=== PATIENT | female | born 1990 | race Caucasian/White ===

== ENCOUNTER 2016-11-30 23:31 | Emergency (ER) | payer OTHER ==
[~2016-11-30] VITALS: Ht 154.9 cm; Wt 72.7 kg
[~2016-11-30 23:31] MED LIST: PREN-99 PO
--- NOTE | 2016-11-30 23:37 | ED.REPORT ---
HPI-Extremity Problem Lower Date of Service Nov 30, 2016 ED Provider: Dr. Boo The pt is a 26 y/o female with one kidney and a hx of asthma who presents to the ED complaining of left ankle pain and swelling, onset a few hours ago after the pt slipped and fell while hiking. She felt a crack. She took a Tylenol 2 hours ago which provided mild relief. She denies lack of sensation and motor function in her toes. Nursing Notes Stated Complaint: LEFT ANKLE PAIN Nursing Notes Reviewed: Yes Allergies: Coded Allergies: amoxicillin (Unverified Allergy, Intermediate, rash, 07/27/13) ibuprofen (Verified Adverse Reaction, Unknown, Pt has one kidney, 01/08/15 ) Miscellaneous Medications Pnv95/Ferrous Fumarate/FA ( Multivitamins Tablet) 1 Each Tablet 1 EACH PO General Time Seen by MD: 23:36 Chief Complaint Ankle injury left Hx Obtained From: Patient Arrived By: Wheelchair Onset Occurred: 1 - 4 hours ago Symptom Duration: Since onset Caused by: Fall on ground Location: : Ankle left Quality: Painful Severity: Current: MildModerate Severity: Maximum: Moderate Recent Healthcare: No recent doctor visit Past Medical History Past Medical History Mild hypothyroid One kidney Reports: Asthma Smoking History Never Smoker Social History Other Social History: Good social support, Lives with children, Local resident Ambulatory Status Independent Review of Systems Denies: lack of sensation and motor function in left toes. Musculoskeletal: Reports: Joint pain (left ankle pain), Joint swelling (left ankle swelling) Complete sys rev & neg: except as marked. Physical Exam Initial Vital Signs Vital Signs (First) Date Time Temp Pulse Resp B/P Pulse Ox O2 Delivery O2 Flow Rate FiO2 11/30/16 23:47 36.8 102 16 127/83 100 Room Air Initial VS: Reviewed Head / Eyes: Atraumatic, Normocephalic Neck: Supple, Non-tender, Full range of motion Respiratory: No respiratory distress Cardiovascular: Intact distal pulses Abdomen / GI: Soft, Non-tender, No guarding, No rebound, No distention Upper Extremities: Vascular intact, Neuro intact, No swelling, No tenderness Skin: Warm, Dry, No cyanosis Neurologic: Alert, Oriented, Nonfocal Lower Extremity / Pelvis / MS: Atraumatic, Full range of motion, No swelling, Non-tender, No erythema, No deformity, Neurologic intact, Vascular intact Ankle / Foot: No erythema, Non-tender, Neurologic intact, Vascular intact Left ankle is tender medially with swelling laterally. General/Constitutional: Awake, Alert, No acute distress, Well appearing, Cooperative Interpretation & Diagnostics X-Ray Interpretation Xray Interpretation: No fracture. X-Ray Ordered: Ankle left Procedures Splint Application - Fx Mgt Time: 00:48 Procedure Performed by: Nurse Precise Anatomic Location: Left ankle Post-Procedure / Complications: Cap refill normal, Post splint vascular nl, Post splint neuro nl, Condition improved, Tolerated procedure well, Patient stable Re-Eval/Medical Decision Med Decision/Clinical Course 26-year-old who said her ankle and felt a snap, but has no bony fracture. On x-ray. Jagdish wrap Aircast and shoe with crutches. Follow-up with PCP. Re-Evaluation/Progress : Time of Eval: 00:18 Re-Evaluation/Progress Note: Rechecked pt. Discussed imaging results, diagnosis and plan to discharge. Pt understands and agrees with the plan. F/U instruction and RTER warning given. All questions addressed. Counseled Regarding: Diagnosis, Need for follow-up, When/why to return to ED Discharge & Departure Impression: Primary Impression: Left ankle sprain Encounter type: initial encounter Involved ligament of ankle: unspecified ligament Qualified Code: S93.402A - Sprain of unspecified ligament of left ankle, initial encounter Disposition: Home Discharge Condition All VS Reviewed: Yes Condition: Stable Patient Instructions: Ankle Sprain (ED) Additional Instructions: Thank you for entrusting us with your care today. Your X-ray shows no fracture. You have a left ankle sprain. Begin with an Jagdish wrap or a tall sock, then the Aircast clamshell splint, then a shoe. Always use all the elements when up and about. The splint is dangerous without a shoe to contain the bottom of it and prevent skidding. Use crutches as long as it is tender to bear weight with the splint. You may graduate over to the splint alone once it is no longer tender. Continue with splint until it is no longer tender at all. Remove the splint and wrap to sleep. Begin extra strength Tylenol four times daily for pain as needed. Ice the area frequently over the first twenty-four hours. Elevate the ankle above the heart whenever possible. Follow up with your primary care provider for further evaluation if needed. Return to the emergency department in case of any new or worsening symptoms. Scribe Attestation Portions of this note were transcribed by Afshin Gutierrez. I,, personally performed the history,physical exam and medical decision-making;I reviewed and confirmed the accuracy of the information in the transcribed note. Signed by Sid Kaur. 12/01/16 Stewart Boo MD Nov 30, 2016 23:37 Afshin Gutierrez Nov 30, 2016 23:47
[2016-11-30 23:47] VITALS: BP 127/83; PULSE 102; RESP 16; O2SAT 100
--- NOTE | 2016-12-01 12:27 | DRSVH ---
PROCEDURE: X-RAY LEFT ANKLE, MINIMUM THREE VIEWS ([id number]) INDICATIONS: twisted ankle TECHNIQUE: 3 views of the ankle were acquired. COMPARISON: None. FINDINGS: Bones: No fractures or dislocations. Ankle mortise is normally aligned. No suspicious bony lesions . Soft tissues: There is soft tissue swelling over the lateral malleolus. There is a small tibiotalar joint effusion. Achilles tendon appears normal. IMPRESSION: 1. No fracture or dislocation. Dictated by: Leonardo Dia M.D. on 12/01/2016 at 12:25 Approved by: Leonardo Dia M.D. on 12/01/2016 at 12:26
== END 2016-12-01 00:51 | disposition home or self-care (01) ==
LOC: SED 23:31
DX: S93.402A Sprain of unspecified ligament of left ankle, initial encounter (principal); W01.0XXA Fall on same level from slipping, tripping and stumbling without subsequent striking against object, initial encounter; Y93.01 Activity, walking, marching and hiking; Y92.89 Other specified places as the place of occurrence of the external cause; Y99.8 Other external cause status; Z88.0 Allergy status to penicillin; Z88.6 Allergy status to analgesic agent